=== PATIENT | female | born 1990 | race Caucasian/White ===

== ENCOUNTER 2016-07-21 12:06 | Inpatient (IN) | payer MEDICAID, OTHER ==
[~2016-07-21] VITALS: Ht 165.1 cm; Wt 81.2 kg
[~2016-07-21 12:06] MED LIST: HYDR-4031 PO; OLAN2.5T3 PO; QUET25TA PO; TRAZ-144 PO
[2016-07-21] MEDS ORDERED: LORazepam 2 MG TABLET PO PRN (16:00)
[2016-07-21] MEDS ORDERED: HALOPERIDOL 5 MG TABLET PO PRN (16:00)
[2016-07-21 16:02] VITALS: BP 126/83
[2016-07-21] MEDS ORDERED: INFLUENZA VIRUS VACCINE QVS 2016-17 (3YR+)/PF 60 MCG/0.5 ML SYRINGE IM ONE (16:15)
[2016-07-21 16:44] VITALS: BP 145/80
[2016-07-21 16:46] VITALS: BP 145/80
[2016-07-21] MEDS ORDERED: OLANZapine 5 MG TABLET PO SCH (21:00)
[2016-07-22 08:12] LABS: BASOPHILS # (AUTO) 0.04 K/uL (0.00-0.20); BASOPHILS % (AUTO) 0.5 % (0.0-2.0); EOSINOPHILS # (AUTO) 0.21 K/uL (0.00-0.70); EOSINOPHILS % (AUTO) 2.78 % (1.0-6.0); HEMATOCRIT 40.3 % (36-46); HEMOGLOBIN 13.6 g/dL (12.0-16.0); LYMPHOCYTES # (AUTO) 3.9 K/uL (1.0-4.8); LYMPHOCYTES % (AUTO) 50.7 % (22.0-44.0); MEAN CORPUSCULAR HEMOGLOBIN 28.2 pg (26.0-34.0); MEAN CORPUSCULAR HGB CONC 33.7 G/dL (31.0-37.0); MEAN CORPUSCULAR VOLUME 84 fL (80-100); MONOCYTES # (AUTO) 0.6 K/uL (0.1-1.0); NEUTROPHILS # (AUTO) 2.9 K/uL (1.8-7.7); PLATELET COUNT (AUTO) 304 K/uL (150-450); RED BLOOD CELL COUNT(AUTO) 4.81 MIL/uL (4.00-5.20); RED CELL DISTRIBUTION WIDTH 13.3 % (11.5-14.5); WHITE BLOOD COUNT (AUTO) 7.7 K/uL (4.5-11.0)
[2016-07-22 08:18] VITALS: BP 121/78
[2016-07-22 08:24] LABS: ALANINE AMINOTRANSFERASE 32 U/L (12-78); ALBUMIN 3.5 g/dL (3.4-5.0); ANION GAP 5 mmol/L (8-16); ASPARTATE AMINOTRANSFERASE 14 U/L (15-37); BILIRUBIN,TOTAL 0.4 mg/dL (0.1-1.0); CALCIUM, TOTAL 8.8 mg/dL (8.8-10.5); CARBON DIOXIDE 29 mmol/L (22-29); CHLORIDE 104 mmol/L (98-107); CREATININE 0.89 mg/dL (0.60-1.30); GLOMERULAR FILTR. RATE CALC > 60 mL/min (>60); POTASSIUM 3.7 mmol/L (3.5-5.1); SODIUM SERUM 138 mmol/L (136-145); TOTAL PROTEIN, SERUM 7.5 g/dL (6.4-8.2); UREA NITROGEN, BLOOD 9 mg/dL (7-18)
[2016-07-22] MEDS: NICOTINE 14 MG/24 HOUR PATCH TD SCH (08:53)
[2016-07-22] MEDS ORDERED: FLUoxetine HCL 20 MG CAPSULE PO SCH (09:00)
[2016-07-22 16:09] VITALS: BP 126/75
[2016-07-22] MEDS: OLANZapine 10 MG TABLET PO SCH (20:02)
[2016-07-22] MEDS: ZOLPIDEM TARTRATE 10 MG TABLET PO PRN (21:06)
[2016-07-23 07:12] VITALS: BP 132/80
[2016-07-23 08:04] VITALS: BP 118/71
[2016-07-23] MEDS: FLUoxetine HCL 20 MG CAPSULE PO SCH (09:36)
[2016-07-23] MEDS: NICOTINE 14 MG/24 HOUR PATCH TD SCH (09:37)
[2016-07-23] MEDS: HydrOXYzine PAMOATE 25 MG CAPSULE PO PRN (09:44)
[2016-07-23 16:51] VITALS: BP 130/76
[2016-07-23] MEDS: OLANZapine 10 MG TABLET PO SCH (20:50)
[2016-07-23] MEDS: ZOLPIDEM TARTRATE 10 MG TABLET PO PRN (20:50)
[2016-07-24 08:05] VITALS: BP 134/81
[2016-07-24] MEDS: FLUoxetine HCL 20 MG CAPSULE PO SCH (08:48)
[2016-07-24] MEDS: NICOTINE 14 MG/24 HOUR PATCH TD SCH (08:49)
[2016-07-24] MEDS: HydrOXYzine PAMOATE 25 MG CAPSULE PO PRN (16:19)
[2016-07-24 16:34] VITALS: BP 131/68
[2016-07-24] MEDS: OLANZapine 10 MG TABLET PO SCH (20:41)
[2016-07-25] MEDS: NICOTINE 14 MG/24 HOUR PATCH TD SCH (08:05)
[2016-07-25] MEDS: FLUoxetine HCL 20 MG CAPSULE PO SCH (08:05)
[2016-07-25 08:35] VITALS: BP 127/76
[2016-07-25] MEDS: HydrOXYzine PAMOATE 25 MG CAPSULE PO PRN (16:39)
[2016-07-25 17:50] VITALS: BP 121/84
[2016-07-25] MEDS: OLANZapine 10 MG TABLET PO SCH (20:12)
[2016-07-25] MEDS: ZOLPIDEM TARTRATE 10 MG TABLET PO PRN (20:12)
[2016-07-26 01:22] VITALS: BP 121/70
[2016-07-26 08:46] VITALS: BP 125/73
[2016-07-26] MEDS ORDERED: FLUoxetine HCL 20 MG CAPSULE PO SCH (09:00)
[2016-07-26] MEDS: NICOTINE 14 MG/24 HOUR PATCH TD SCH (09:18)
[2016-07-26] MEDS: HydrOXYzine PAMOATE 25 MG CAPSULE PO PRN (14:51)
[2016-07-26 16:14] VITALS: BP 134/79
[2016-07-26] MEDS: OLANZapine 10 MG TABLET PO SCH (20:24)
[2016-07-26] MEDS ORDERED: OLAN10TA3 PO (20:29)
[2016-07-26] MEDS ORDERED: FLUO-191 PO (20:29)
== END 2016-07-26 22:00 | disposition home or self-care (01) | DRG 750 ==
LOC: B3A 16:56 → EDSTATUS 16:58 → B2S 07-25 15:49
PROVIDERS: ADMIT Psychiatry & Neurology Psychiatry; ATTEND Psychiatry & Neurology Psychiatry
DX: F25.0 Schizoaffective disorder, bipolar type (principal); R45.851 Suicidal ideations; F15.20 Other stimulant dependence, uncomplicated; F10.10 Alcohol abuse, uncomplicated; F60.3 Borderline personality disorder; Z28.21 Immunization not carried out because of patient refusal; Z71.41 Alcohol abuse counseling and surveillance of alcoholic; Z71.51 Drug abuse counseling and surveillance of drug abuser; Z81.8 Family history of other mental and behavioral disorders; Z83.3 Family history of diabetes mellitus; Z91.040 Latex allergy status; F41.9 Anxiety disorder, unspecified